=== PATIENT | male | born 1955 | race Hispanic/Latino ===

== ENCOUNTER 2017-11-14 10:00 | Inpatient (IN) | payer OTHER ==
[~2017-11-14] VITALS: Ht 165.1 cm; Wt 85.2 kg
[2017-11-14 14:28] LABS: BASOPHILS % (AUTO) 0.9 % (0.0-5.0); EOSINOPHILS % (AUTO) 1.9 % (0.0-8.0); HEMATOCRIT 44.7 % (42-54); LYMPHOCYTES % (AUTO) 24.7 % (21.0-51.0); MEAN CORPUSCULAR HEMOGLOBIN 28.9 pg (27.0-33.0); MEAN CORPUSCULAR HGB CONC 34.5 g/dL (32.0-36.0); MEAN CORPUSCULAR VOLUME 83.9 fL (79-99); MONOCYTES % (AUTO) 11.8 % (3.0-13.0); NEUTROPHILS % (AUTO) 60.7 % (40.0-77.0); PLATELET COUNT (AUTO) 221 K/uL (130-400); RED BLOOD CELL COUNT(AUTO) 5.33 MIL/uL (4.50-6.20); RED CELL DISTRIBUTION WIDTH 14.1 % (11.0-15.5); WHITE BLOOD COUNT (AUTO) 7.6 K/uL (4.8-10.8)
[2017-11-14 14:29] VITALS: BP 132/63
[2017-11-14 14:40] LABS: PARTIAL THROMBOPLASTIN TIME 27.1 SEC (26.3-35.5); PROTHROMBIN TIME 10.5 SEC (9.6-11.6)
[2017-11-14 14:44] LABS: ALBUMIN 4.3 g/dL (3.5-5.0); BILIRUBIN,TOTAL 0.6 mg/dL (0.2-1.0); HEMOGLOBIN A1C 5.8 % (4.0-6.0); POTASSIUM 3.9 mmol/L (3.5-5.1); TOTAL PROTEIN, SERUM 7.5 g/dL (6.0-8.3)
[2017-11-14] MEDS ORDERED: CLON0.1T PO (15:00)
[2017-11-14] MEDS ORDERED: HYDR-4153 PO (15:00)
[2017-11-14] MEDS ORDERED: AMLO5TAB2 PO (15:00)
[2017-11-15] VITALS (22 sets, daily range): BP systolic 86–168; BP diastolic 34–73
[2017-11-15] MEDS: CEFUROXIME SODIUM 1.5 GM VIAL IVP SCH ×2 (06:00→08:30)
[2017-11-15] MEDS ORDERED: SODIUM CHLORIDE 0.9% 1000ML 1,000 ML IV ONE (06:19)
[2017-11-15] MEDS ORDERED: NITROGLYCERIN 50 MG/D5% WATER 1 BOT ONE (06:29)
[2017-11-15] MEDS ORDERED: BACITRACIN 50,000 UNIT VIAL ONE ×2 (07:03→15:23)
[2017-11-15] MEDS ORDERED: AMIODARONE HCL 50 MG/ML 3 ML VIAL ONE (07:13)
[2017-11-15] MEDS ORDERED: FENTANYL CITRATE PF 50 MCG/1 ML 5ML AMP IV ONE ×2 (07:22→07:23)
[2017-11-15] MEDS ORDERED: ROCURONIUM BROMIDE 10MG/1ML 5ML VL ONE ×2 (07:24→07:35)
[2017-11-15] MEDS ORDERED: GLYCOPYRROLATE 0.2 MG/ML 5 ML VIAL ONE (07:24)
[2017-11-15] MEDS ORDERED: PROTAMINE SULFATE 10 MG/ML 25ML VIAL IV ONE (07:24)
[2017-11-15] MEDS ORDERED: AMINOCAPROIC ACID 250 MG/ML 20 ML VIAL IV ONE (07:24)
[2017-11-15] MEDS ORDERED: PROPOFOL 10 MG/ML 20ML VIAL IV ONE (07:24)
[2017-11-15] MEDS ORDERED: NOREPINEPHRINE BITARTRATE 1 MG/1 ML ML IV ONE ×3 (07:24→14:59)
[2017-11-15] MEDS ORDERED: EPINEPHRINE 1 MG/ML AMPULE ONE (07:24)
[2017-11-15] MEDS ORDERED: ESMOLOL HCL 10 MG/ML 10 ML VIAL ONE (07:24)
[2017-11-15] MEDS ORDERED: MILRINONE-D5W 20 MG/100 ML 100 ML IV ONE (07:24)
[2017-11-15] MEDS ORDERED: LIDOCAINE PF 2% 5ML ABBOJECT ONE (07:24)
[2017-11-15] MEDS ORDERED: HEPARIN SODIUM 1000UNIT/ML 10ML VIAL ONE (07:24)
[2017-11-15] MEDS ORDERED: NEOSTIGMINE 5MG/5ML SYR IV ONE (07:24)
[2017-11-15] MEDS ORDERED: MIDAZOLAM HCL 1 MG/ML 5ML VIAL ONE (07:25)
[2017-11-15] MEDS ORDERED: DELNIDO FORMULA 1 BAG IV ONE (08:09)
[2017-11-15] MEDS ORDERED: THROMBIN-JMI 5000 UNIT/VIAL TP ONE (08:09)
[2017-11-15] MEDS ORDERED: METHYLPREDNISOLONE SOD SUCC 1,000 MG/8 ML ML IV ONE (08:11)
[2017-11-15 09:13] LABS: ABG HCO3 25.4 mmol/L (21.0-28.0); ABG OXYGEN SATURATION 98.8 % (95.0-99.0); ABG PCO2 44 mmHg (35-48)
[2017-11-15] MEDS ORDERED: ROPIVACAINE 0.2% 2MG/ML 100ML VIAL IJ ONE (10:00)
[2017-11-15 10:28] LABS: ABG BASE EXCESS -0.3 mmol/L (-2.0-3.0); ABG HCO3 24.5 mmol/L (21.0-28.0); ABG OXYGEN SATURATION 98.6 % (95.0-99.0); ABG PCO2 41 mmHg (35-48)
[2017-11-15] MEDS ORDERED: SODIUM CHLORIDE 0.9% 500ML 500 ML IV SCH (11:05)
[2017-11-15] MEDS ORDERED: ONDANSETRON HCL 4 MG/2 ML VIAL IV PRN (11:15)
[2017-11-15] MEDS ORDERED: DEXTROSE 50%-WATER 50 ML DISP.SYRIN IV PRN (11:15)
[2017-11-15] MEDS ORDERED: NITROGLYCERIN 50 MG/D5% WATER 250 BOT IV SCH (11:15)
[2017-11-15] MEDS ORDERED: AMINOCAPROIC ACID 15,000 MG in SODIUM CHLORIDE 0.9% 250 ML IV SCH (11:15)
[2017-11-15] MEDS ORDERED: CALCIUM GLUCONATE 1 GM in SODIUM CHLORIDE 0.9% 50 ML IV PRN (11:15)
[2017-11-15] MEDS ORDERED: ALBUMIN (HUMAN) 5% 250 ML IV PRN (11:15)
[2017-11-15] MEDS ORDERED: MORPHINE SULFATE 2 MG/ML 1ML SYG IV PRN (11:15)
[2017-11-15] MEDS ORDERED: SODIUM CHLORIDE 0.9% 250 ML IV PRN (11:15)
[2017-11-15] MEDS ORDERED: SODIUM CHLORIDE 0.9% 10 ML VIAL IVP PRN (11:15)
[2017-11-15] MEDS ORDERED: EPINEPHRINE 2 MG in SODIUM CHLORIDE 0.9% 250 ML IV PRN (11:15)
[2017-11-15] MEDS ORDERED: POTASSIUM PHOS 15 mMOL+NS250ML 250 ML IV PRN (11:15)
[2017-11-15] MEDS ORDERED: ACETAMINOPHEN 650 MG SUPPOSITORY RC PRN (11:15)
[2017-11-15] MEDS ORDERED: MORPHINE SULFATE 4 MG/1ML SYG IV PRN (11:15)
[2017-11-15] MEDS ORDERED: SODIUM BICARB 8.4% 50ML SYRINGE IV PRN (11:15)
[2017-11-15] MEDS ORDERED: SODIUM CHLORIDE 0.9% 1000ML 1,000 ML IV SCH (11:15)
[2017-11-15] MEDS ORDERED: ACETAMINOPHEN 325 MG TAB PO PRN (11:15)
[2017-11-15] MEDS ORDERED: NOREPINEPHRINE 4MG/NS 250ML 250 ML IV PRN (11:15)
[2017-11-15] MEDS ORDERED: MAGNESIUM 2GM PREMIX 50ML 50 ML IV PRN (11:15)
[2017-11-15] MEDS ORDERED: GLUCAGON 1MG KIT 1 MG ML IM PRN (11:15)
[2017-11-15] MEDS ORDERED: PROPOFOL 1000 MG/100 ML 100 ML IV PRN (11:15)
[2017-11-15] MEDS ORDERED: NICARDIPINE HCL 100 MG in SODIUM CHLORIDE 0.9% 100 ML IV PRN (11:15)
[2017-11-15 11:17] LABS: ABG BASE EXCESS -6.9 mmol/L (-2.0-3.0); ABG HCO3 18.9 mmol/L (21.0-28.0); ABG OXYGEN SATURATION 98.4 % (95.0-99.0); ABG PCO2 39 mmHg (35-48)
[2017-11-15] MEDS ORDERED: ONDANSETRON HCL MDV 20ML 2 MG/ML VIAL IVP PRN (11:30)
[2017-11-15] MEDS ORDERED: ALBUMIN (HUMAN) 25% 50 ML IV ONE (12:00)
[2017-11-15] MEDS ORDERED: AMINOPHYLLINE 500 MG/20 ML VIAL IV ONE (12:00)
[2017-11-15] MEDS ORDERED: MAGNESIUM SULFATE 1 GM/2 ML VIAL IM ONE (12:00)
[2017-11-15] MEDS ORDERED: HEPARIN SODIUM 1000UNIT/ML 10ML VIAL IV ONE (12:00)
[2017-11-15] MEDS ORDERED: MANNITOL 25% 50ML VIAL IV ONE (12:00)
[2017-11-15] MEDS ORDERED: SODIUM BICARB 8.4% 50ML SYRINGE IVP ONE (12:00)
[2017-11-15] MEDS ORDERED: CALCIUM CHLORIDE 100 MG/ML 10 ML SYG IVP ONE (12:00)
[2017-11-15 12:03] LABS: ABG HCO3 16.7 mmol/L (21.0-28.0); ABG OXYGEN SATURATION 98.7 % (95.0-99.0); ABG PCO2 36 mmHg (35-48)
[2017-11-15] MEDS ORDERED: SODIUM BICARB 50MEQ 50ML VIAL ONE ×8 (12:07→21:07)
[2017-11-15] MEDS: POTASSIUM CHLORIDE 20MEQ/100ML 100 ML IV PRN ×6 (12:43→22:25)
[2017-11-15] MEDS: AMBU PUMP 1 EACH EACH MISC SCH (12:50)
[2017-11-15 13:07] LABS: ABG BASE EXCESS -6.1 mmol/L (-2.0-3.0); ABG HCO3 20.7 mmol/L (21.0-28.0); ABG OXYGEN SATURATION 91.2 % (95.0-99.0); ABG PCO2 45 mmHg (35-48)
[2017-11-15] MEDS ORDERED: PROTAMINE SULFATE 10 MG/ML 5 ML VIAL ONE (13:22)
[2017-11-15 13:23] LABS: MEAN CORPUSCULAR HGB CONC 33.7 g/dL (32.0-36.0); MEAN CORPUSCULAR VOLUME 86.1 fL (79-99); PLATELET COUNT (AUTO) 182 K/uL (130-400); RED BLOOD CELL COUNT(AUTO) 4.99 MIL/uL (4.50-6.20); RED CELL DISTRIBUTION WIDTH 14.2 % (11.0-15.5)
[2017-11-15 13:28] LABS: CREATININE 1.4 mg/dL (0.5-1.5); MAGNESIUM 2.7 mg/dL (1.80-2.40); PHOSPHORUS 4.4 mg/dL (2.5-4.9); POTASSIUM 3.3 mmol/L (3.5-5.1)
[2017-11-15] MEDS ORDERED: DESMOPRESSIN ACETATE IJ SCH (13:30)
[2017-11-15] MEDS ORDERED: PROTAMINE SULFATE 10 MG/ML 5 ML VIAL IVP SCH (13:30)
[2017-11-15] MEDS ORDERED: SODIUM CHLORIDE 0.9% IJ SCH (13:30)
[2017-11-15 13:33] LABS: INR 1.14 (0.85-1.15); PARTIAL THROMBOPLASTIN TIME 24.3 SEC (26.3-35.5); PROTHROMBIN TIME 11.9 SEC (9.6-11.6)
[2017-11-15 13:39] LABS: ABG BASE EXCESS -6.1 mmol/L (-2.0-3.0); ABG HCO3 20.4 mmol/L (21.0-28.0); ABG OXYGEN SATURATION 92.8 % (95.0-99.0); ABG PCO2 44 mmHg (35-48)
[2017-11-15 14:11] LABS: ABG BASE EXCESS -3.8 mmol/L (-2.0-3.0); ABG HCO3 21.2 mmol/L (21.0-28.0); ABG OXYGEN SATURATION 95.6 % (95.0-99.0); ABG PCO2 38 mmHg (35-48)
[2017-11-15] MEDS ORDERED: MIDAZOLAM HCL 1 MG/ML 2ML VIAL ONE (14:32)
[2017-11-15] MEDS ORDERED: MIDAZOLAM HCL 1 MG/ML 2ML VIAL IVP SCH (14:45)
[2017-11-15 14:53] LABS: ABG BASE EXCESS -7.3 mmol/L (-2.0-3.0); ABG PCO2 50 mmHg (35-48)
[2017-11-15] MEDS ORDERED: CEFUROXIME SODIUM 1.5 GM VIAL ONE (14:55)
[2017-11-15 15:04] LABS: HEMATOCRIT 23.5 % (42-54); MEAN CORPUSCULAR HEMOGLOBIN 29.7 pg (27.0-33.0); MEAN CORPUSCULAR HGB CONC 34.4 g/dL (32.0-36.0); MEAN CORPUSCULAR VOLUME 86.3 fL (79-99); PLATELET COUNT (AUTO) 179 K/uL (130-400); RED BLOOD CELL COUNT(AUTO) 2.72 MIL/uL (4.50-6.20); RED CELL DISTRIBUTION WIDTH 14.3 % (11.0-15.5); WHITE BLOOD COUNT (AUTO) 15.2 K/uL (4.8-10.8)
[2017-11-15] MEDS ORDERED: POTASSIUM CHLORIDE 20MEQ/100ML 100 ML IV ONE (15:04)
[2017-11-15] MEDS ORDERED: THROMBIN-JMI 20000 UNIT KIT TP ONE ×2 (15:10→15:29)
[2017-11-15 15:15] LABS: INR 1.18 (0.85-1.15); PARTIAL THROMBOPLASTIN TIME 25.2 SEC (26.3-35.5); PROTHROMBIN TIME 12.4 SEC (9.6-11.6)
[2017-11-15 15:36] LABS: ABG BASE EXCESS -2.6 mmol/L (-2.0-3.0); ABG HCO3 24.2 mmol/L (21.0-28.0); ABG OXYGEN SATURATION 95.5 % (95.0-99.0); ABG PCO2 51 mmHg (35-48)
[2017-11-15] MEDS ORDERED: EPHEDRINE SULFATE 50 MG/ML AMPULE ONE (15:38)
[2017-11-15] MEDS ORDERED: OCTYL 2-CYANOACRYLATE 1 EACH TP ONE (15:47)
[2017-11-15 16:50] LABS: HEMATOCRIT 31.7 % (42-54); MEAN CORPUSCULAR HEMOGLOBIN 29.4 pg (27.0-33.0); MEAN CORPUSCULAR HGB CONC 34.2 g/dL (32.0-36.0); MEAN CORPUSCULAR VOLUME 85.9 fL (79-99); PLATELET COUNT (AUTO) 204 K/uL (130-400); RED BLOOD CELL COUNT(AUTO) 3.69 MIL/uL (4.50-6.20); RED CELL DISTRIBUTION WIDTH 14.6 % (11.0-15.5); WHITE BLOOD COUNT (AUTO) 21.2 K/uL (4.8-10.8)
[2017-11-15 16:56] LABS: CREATININE 1.6 mg/dL (0.5-1.5)
[2017-11-15 17:05] LABS: ABG BASE EXCESS -4.3 mmol/L (-2.0-3.0); ABG HCO3 19.9 mmol/L (21.0-28.0); ABG OXYGEN SATURATION 97.4 % (95.0-99.0); ABG PCO2 33 mmHg (35-48)
[2017-11-15] MEDS ORDERED: SODIUM CHLORIDE 0.9% 100 ML IV ONE ×3 (17:08→21:09)
[2017-11-15 17:17] LABS: POTASSIUM 2.8 mmol/L (3.5-5.1)
[2017-11-15] MEDS ORDERED: SODIUM BICARB 50MEQ 50ML VIAL IV ONE (17:30)
[2017-11-15] MEDS ORDERED: EPINEPHRINE 8 MG in SODIUM CHLORIDE 0.9% 250 ML IV PRN (17:45)
[2017-11-15] MEDS ORDERED: COAGULATION FACTOR VIIA RECOMB 1 MG VIAL IV SCH (17:45)
[2017-11-15] MEDS ORDERED: PHARMACY COMMUNICATION MISC SCH (18:00)
[2017-11-15] MEDS ORDERED: NOREPINEPHRINE BITARTRATE 8 MG in SODIUM CHLORIDE 0.9% 250 ML IV SCH (18:15)
[2017-11-15 18:32] LABS: ABG BASE EXCESS -1.1 mmol/L (-2.0-3.0); ABG HCO3 22.5 mmol/L (21.0-28.0); ABG OXYGEN SATURATION 99.2 % (95.0-99.0); ABG PCO2 35 mmHg (35-48)
[2017-11-15] MEDS: INSULIN REGULAR, HUMAN 3ML 100 UNIT in SODIUM CHLORIDE 0.9% 99 ML IV SCH ×2 (18:39)
[2017-11-15] MEDS ORDERED: CEFUROXIME 1.5GM+NS 100ML 100 ML IV SCH (19:15)
[2017-11-15 20:05] LABS: ABG BASE EXCESS -5.9 mmol/L (-2.0-3.0); ABG HCO3 18.5 mmol/L (21.0-28.0); ABG OXYGEN SATURATION 97.4 % (95.0-99.0); ABG PCO2 33 mmHg (35-48)
[2017-11-15] MEDS ORDERED: CALCIUM GLUCONATE 1 GM/10 ML VIAL IV ONE ×2 (20:08→21:08)
[2017-11-15 21:04] LABS: ABG BASE EXCESS -2.3 mmol/L (-2.0-3.0); ABG HCO3 21.1 mmol/L (21.0-28.0); ABG OXYGEN SATURATION 97.6 % (95.0-99.0); ABG PCO2 32 mmHg (35-48)
[2017-11-15 22:06] LABS: ABG BASE EXCESS 2.2 mmol/L (-2.0-3.0); ABG HCO3 25.1 mmol/L (21.0-28.0); ABG OXYGEN SATURATION 97.5 % (95.0-99.0); ABG PCO2 33 mmHg (35-48)
[2017-11-16] VITALS (26 sets, daily range): BP systolic 99–153; BP diastolic 49–83
[2017-11-16 00:11] LABS: ABG BASE EXCESS 2.4 mmol/L (-2.0-3.0); ABG HCO3 25.3 mmol/L (21.0-28.0); ABG OXYGEN SATURATION 95.3 % (95.0-99.0); ABG PCO2 33 mmHg (35-48)
[2017-11-16] MEDS ORDERED: CALCIUM GLUCONATE 1 GM/10 ML VIAL IV ONE ×3 (00:13→06:58)
[2017-11-16] MEDS ORDERED: SODIUM CHLORIDE 0.9% 100 ML IV ONE ×2 (00:14→06:59)
[2017-11-16] MEDS: POTASSIUM CHLORIDE 20MEQ/100ML 100 ML IV PRN (00:20)
[2017-11-16 02:13] LABS: ABG BASE EXCESS 5.2 mmol/L (-2.0-3.0); ABG HCO3 27.9 mmol/L (21.0-28.0); ABG OXYGEN SATURATION 94.9 % (95.0-99.0); ABG PCO2 34 mmHg (35-48)
[2017-11-16] MEDS: CEFUROXIME SODIUM 1.5 GM VIAL IVP SCH ×2 (02:23→13:19)
[2017-11-16 03:14] LABS: ABG HCO3 28.9 mmol/L (21.0-28.0); ABG OXYGEN SATURATION 95.5 % (95.0-99.0); ABG PCO2 35 mmHg (35-48)
[2017-11-16 03:52] LABS: MEAN CORPUSCULAR HEMOGLOBIN 29.3 pg (27.0-33.0); MEAN CORPUSCULAR VOLUME 83.6 fL (79-99); PLATELET COUNT (AUTO) 146 K/uL (130-400); RED BLOOD CELL COUNT(AUTO) 3.12 MIL/uL (4.50-6.20); RED CELL DISTRIBUTION WIDTH 14.5 % (11.0-15.5); WHITE BLOOD COUNT (AUTO) 9.4 K/uL (4.8-10.8)
[2017-11-16 04:10] LABS: CREATININE 1.4 mg/dL (0.5-1.5); MAGNESIUM 1.8 mg/dL (1.80-2.40); POTASSIUM 4.9 mmol/L (3.5-5.1)
[2017-11-16 05:05] LABS: ABG BASE EXCESS 8.9 mmol/L (-2.0-3.0); ABG HCO3 31.8 mmol/L (21.0-28.0); ABG OXYGEN SATURATION 94.3 % (95.0-99.0); ABG PCO2 37 mmHg (35-48)
[2017-11-16 06:37] LABS: ABG BASE EXCESS 6.9 mmol/L (-2.0-3.0); ABG HCO3 30.3 mmol/L (21.0-28.0); ABG OXYGEN SATURATION 93.8 % (95.0-99.0); ABG PCO2 38 mmHg (35-48)
[2017-11-16 08:11] LABS: ABG BASE EXCESS 7.2 mmol/L (-2.0-3.0); ABG HCO3 31.2 mmol/L (21.0-28.0); ABG OXYGEN SATURATION 92.5 % (95.0-99.0); ABG PCO2 42 mmHg (35-48)
[2017-11-16] MEDS: AMBU PUMP 1 EACH EACH MISC SCH (08:15)
[2017-11-16] MEDS: PANTOPRAZOLE 40 MG/VIAL IV SCH (08:42)
[2017-11-16] MEDS: INSULIN REGULAR, HUMAN 3ML 100 UNIT in SODIUM CHLORIDE 0.9% 99 ML IV SCH ×2 (08:45)
[2017-11-16] MEDS: HYDROCODONE/ACETAMINOPHEN 5/325 MG TAB PO PRN ×2 (09:16→20:15)
[2017-11-16] MEDS: TRAMADOL HCL 50 MG TABLET PO PRN ×2 (13:20→17:06)
[2017-11-16] MEDS ORDERED: MORPHINE SULFATE 4 MG/1ML SYG IV PRN (18:18)
[2017-11-16] MEDS: ATORVASTATIN CALCIUM 20 MG TABLET PO SCH (20:08)
[2017-11-17] VITALS (22 sets, daily range): BP systolic 88–142; BP diastolic 57–88
[2017-11-17] MEDS: TRAMADOL HCL 50 MG TABLET PO PRN (00:06)
[2017-11-17] MEDS: CEFUROXIME SODIUM 1.5 GM VIAL IVP SCH (01:51)
[2017-11-17 04:13] LABS: HEMATOCRIT 24.4 % (42-54); MEAN CORPUSCULAR HEMOGLOBIN 30.6 pg (27.0-33.0); MEAN CORPUSCULAR HGB CONC 35.3 g/dL (32.0-36.0); MEAN CORPUSCULAR VOLUME 86.6 fL (79-99); PLATELET COUNT (AUTO) 137 K/uL (130-400); RED BLOOD CELL COUNT(AUTO) 2.82 MIL/uL (4.50-6.20); RED CELL DISTRIBUTION WIDTH 15.4 % (11.0-15.5); WHITE BLOOD COUNT (AUTO) 21.8 K/uL (4.8-10.8)
[2017-11-17 04:35] LABS: CREATININE 1.7 mg/dL (0.5-1.5); MAGNESIUM 2.4 mg/dL (1.80-2.40); PHOSPHORUS 6.7 mg/dL (2.5-4.9); POTASSIUM 5.2 mmol/L (3.5-5.1)
[2017-11-17] MEDS: HYDROCODONE/ACETAMINOPHEN 5/325 MG TAB PO PRN ×2 (05:45→17:36)
[2017-11-17] MEDS: ASPIRIN 81 MG EC TAB PO SCH (08:24)
[2017-11-17] MEDS: FUROSEMIDE 20 MG TABLET PO SCH ×3 (08:25→20:37)
[2017-11-17] MEDS: METOPROLOL TARTRATE 25 MG TAB PO SCH ×2 (08:25→20:38)
[2017-11-17] MEDS: AMBU PUMP 1 EACH EACH MISC SCH (08:45)
[2017-11-17] MEDS: PANTOPRAZOLE 40 MG/VIAL IV SCH (09:00)
[2017-11-17] MEDS: ATORVASTATIN CALCIUM 20 MG TABLET PO SCH (20:37)
[2017-11-18] VITALS (16 sets, daily range): BP systolic 103–149; BP diastolic 68–94
[2017-11-18] MEDS: HYDROCODONE/ACETAMINOPHEN 5/325 MG TAB PO PRN ×2 (00:34→09:12)
[2017-11-18 05:59] LABS: HEMATOCRIT 28.5 % (42-54); MEAN CORPUSCULAR HEMOGLOBIN 29.4 pg (27.0-33.0); MEAN CORPUSCULAR HGB CONC 33.6 g/dL (32.0-36.0); MEAN CORPUSCULAR VOLUME 87.5 fL (79-99); NUCLEATED RED BLOOD CELLS 0.2 % (0.0-0.19); PLATELET COUNT (AUTO) 128 K/uL (130-400); RED BLOOD CELL COUNT(AUTO) 3.26 MIL/uL (4.50-6.20); RED CELL DISTRIBUTION WIDTH 14.9 % (11.0-15.5); WHITE BLOOD COUNT (AUTO) 22.7 K/uL (4.8-10.8)
[2017-11-18 06:25] LABS: CREATININE 2.9 mg/dL (0.5-1.5); POTASSIUM 5.1 mmol/L (3.5-5.1)
[2017-11-18] MEDS ORDERED: SODIUM CHLORIDE 0.9% 1000ML 1,000 ML IV ONE (08:09)
[2017-11-18] MEDS: AMBU PUMP 1 EACH EACH MISC SCH (08:45)
[2017-11-18] MEDS: FUROSEMIDE 20 MG TABLET PO SCH ×5 (09:00→20:29)
[2017-11-18] MEDS: ASPIRIN 81 MG EC TAB PO SCH (09:12)
[2017-11-18] MEDS: METOPROLOL TARTRATE 25 MG TAB PO SCH ×2 (09:13→20:30)
[2017-11-18] MEDS: PANTOPRAZOLE SODIUM 40 MG TABLET.DR PO SCH (09:13)
[2017-11-18] MEDS ORDERED: FUROSEMIDE 100 MG in SODIUM CHLORIDE 0.9% 90 ML IV SCH (11:15)
[2017-11-18] MEDS: ATORVASTATIN CALCIUM 20 MG TABLET PO SCH (20:30)
[2017-11-19] MEDS ORDERED: SODIUM CHLORIDE 0.9% 100 ML IV ONE (02:45)
[2017-11-19] MEDS ORDERED: AMIODARONE HCL 900 MG in DEXTROSE 5%-WATER 500 ML IV SCH (02:45)
[2017-11-19] MEDS ORDERED: AMIODARONE HCL 150 MG in DEXTROSE 5%-WATER 100 ML IV SCH (02:45)
[2017-11-19] MEDS ORDERED: AMIODARONE HCL 50 MG/ML 3 ML VIAL ONE ×2 (02:49→02:52)
[2017-11-19] MEDS ORDERED: DEXTROSE 5%-WATER 500 ML IV ONE (02:58)
[2017-11-19] MEDS: TRAMADOL HCL 50 MG TABLET PO PRN (03:26)
[2017-11-19 03:46] VITALS: BP 131/91
[2017-11-19 05:02] LABS: HEMATOCRIT 27.8 % (42-54); MEAN CORPUSCULAR HEMOGLOBIN 30.2 pg (27.0-33.0); MEAN CORPUSCULAR HGB CONC 34.5 g/dL (32.0-36.0); MEAN CORPUSCULAR VOLUME 87.4 fL (79-99); NUCLEATED RED BLOOD CELLS 1.5 % (0.0-0.19); PLATELET COUNT (AUTO) 141 K/uL (130-400); RED BLOOD CELL COUNT(AUTO) 3.18 MIL/uL (4.50-6.20); RED CELL DISTRIBUTION WIDTH 14.5 % (11.0-15.5); WHITE BLOOD COUNT (AUTO) 19.2 K/uL (4.8-10.8)
[2017-11-19 05:13] LABS: CREATININE 1.4 mg/dL (0.5-1.5); POTASSIUM 3.4 mmol/L (3.5-5.1)
[2017-11-19 07:00] VITALS: BP 132/94
[2017-11-19] MEDS: AMBU PUMP 1 EACH EACH MISC SCH (08:45)
[2017-11-19] MEDS: ASPIRIN 81 MG EC TAB PO SCH (09:19)
[2017-11-19] MEDS: PANTOPRAZOLE SODIUM 40 MG TABLET.DR PO SCH (09:19)
[2017-11-19] MEDS: METOPROLOL TARTRATE 25 MG TAB PO SCH ×2 (09:20→21:44)
[2017-11-19 11:00] VITALS: BP 136/76
[2017-11-19] MEDS: HYDROCODONE/ACETAMINOPHEN 5/325 MG TAB PO PRN (14:58)
[2017-11-19 16:00] VITALS: BP 121/63
[2017-11-19] MEDS: FUROSEMIDE 20 MG TABLET PO SCH (16:08)
[2017-11-19] MEDS ORDERED: POTASSIUM CHLORIDE 20 MEQ ERTAB PO PRN (16:15)
[2017-11-19 19:45] VITALS: BP 120/59
[2017-11-19] MEDS: AMIODARONE HCL 200 MG TABLET PO SCH (21:44)
[2017-11-19] MEDS: ATORVASTATIN CALCIUM 20 MG TABLET PO SCH (21:44)
[2017-11-19] MEDS: HYDRALAZINE HCL 25 MG TABLET PO SCH (21:45)
[2017-11-19 23:28] VITALS: BP 91/60
[2017-11-20] MEDS: HYDROCODONE/ACETAMINOPHEN 5/325 MG TAB PO PRN ×2 (00:49→18:50)
[2017-11-20 03:50] VITALS: BP 107/62
[2017-11-20 04:43] LABS: POTASSIUM 3.5 mmol/L (3.5-5.1)
[2017-11-20] MEDS: POTASSIUM CHLORIDE 10% ELIXIR 20 MEQ/15 ML UDCUP PO PRN ×2 (06:47→08:31)
[2017-11-20 07:00] VITALS: BP 120/70
[2017-11-20] MEDS: AMIODARONE HCL 200 MG TABLET PO SCH ×2 (08:30→21:32)
[2017-11-20] MEDS: FUROSEMIDE 20 MG TABLET PO SCH ×2 (08:30→16:14)
[2017-11-20] MEDS: AMLODIPINE BESYLATE 5 MG TAB PO SCH (08:30)
[2017-11-20] MEDS: PANTOPRAZOLE SODIUM 40 MG TABLET.DR PO SCH (08:30)
[2017-11-20] MEDS: METOPROLOL TARTRATE 25 MG TAB PO SCH ×2 (08:30→21:31)
[2017-11-20] MEDS: ASPIRIN 81 MG EC TAB PO SCH (08:30)
[2017-11-20] MEDS: HYDRALAZINE HCL 25 MG TABLET PO SCH ×2 (08:31→21:32)
[2017-11-20 10:03] LABS: HEMATOCRIT 27.3 % (42-54); MEAN CORPUSCULAR HEMOGLOBIN 29.4 pg (27.0-33.0); MEAN CORPUSCULAR HGB CONC 33.8 g/dL (32.0-36.0); NUCLEATED RED BLOOD CELLS 0.7 % (0.0-0.19); PLATELET COUNT (AUTO) 146 K/uL (130-400); RED BLOOD CELL COUNT(AUTO) 3.14 MIL/uL (4.50-6.20); RED CELL DISTRIBUTION WIDTH 14.2 % (11.0-15.5); WHITE BLOOD COUNT (AUTO) 16.2 K/uL (4.8-10.8)
[2017-11-20 11:00] VITALS: BP 108/55
[2017-11-20 16:00] VITALS: BP 122/67
[2017-11-20 19:50] VITALS: BP 122/87
[2017-11-20] MEDS: ATORVASTATIN CALCIUM 20 MG TABLET PO SCH (21:32)
[2017-11-20 23:22] VITALS: BP 103/58
[2017-11-21] MEDS: HYDROCODONE/ACETAMINOPHEN 5/325 MG TAB PO PRN (00:20)
[2017-11-21 03:28] VITALS: BP 113/64
[2017-11-21 07:36] VITALS: BP 129/72
[2017-11-21] MEDS: FUROSEMIDE 20 MG TABLET PO SCH ×2 (08:04→15:54)
[2017-11-21] MEDS: PANTOPRAZOLE SODIUM 40 MG TABLET.DR PO SCH (08:04)
[2017-11-21] MEDS: ASPIRIN 81 MG EC TAB PO SCH (08:04)
[2017-11-21] MEDS: METOPROLOL TARTRATE 25 MG TAB PO SCH (08:05)
[2017-11-21] MEDS: AMLODIPINE BESYLATE 5 MG TAB PO SCH (08:06)
[2017-11-21] MEDS ORDERED: AMIODARONE HCL 200 MG TABLET PO SCH (09:00)
[2017-11-21] MEDS ORDERED: ATOR20TA65 PO (10:26)
[2017-11-21] MEDS ORDERED: AEC81 PO (10:26)
[2017-11-21] MEDS ORDERED: FURO20TA6 PO (10:26)
[2017-11-21] MEDS ORDERED: METO25 PO (10:26)
[2017-11-21] MEDS: HYDRALAZINE HCL 25 MG TABLET PO SCH (11:16)
[2017-11-21 11:22] VITALS: BP 124/58
[2017-11-21] MEDS ORDERED: AMIO200T44 PO (14:05)
== END 2017-11-21 16:12 | disposition home or self-care (01) | DRG 163 ==
LOC: EDSTATUS 10:00 → DAHIP 11-15 05:43 → 2CV 11-15 09:50 → 2CH 11-16 12:41 → 2DH 11-18 17:34
PROVIDERS: ADMIT Thoracic Surgery (Cardiothoracic Vascular Surgery); ATTEND Thoracic Surgery (Cardiothoracic Vascular Surgery)
PROC: 02L70ZK Occlusion of Left Atrial Appendage, Open Approach (ICD-10-PCS; 2017-11-15)
PROC: 02BG0ZZ Excision of Mitral Valve, Open Approach (ICD-10-PCS; 2017-11-15)
PROC: 30233L1 Transfusion of Nonautologous Fresh Plasma into Peripheral Vein, Percutaneous Approach (ICD-10-PCS; 2017-11-15)
PROC: 30233N1 Transfusion of Nonautologous Red Blood Cells into Peripheral Vein, Percutaneous Approach (ICD-10-PCS; 2017-11-15)
PROC: 30233R1 Transfusion of Nonautologous Platelets into Peripheral Vein, Percutaneous Approach (ICD-10-PCS; 2017-11-15)
PROC: 30233K1 Transfusion of Nonautologous Frozen Plasma into Peripheral Vein, Percutaneous Approach (ICD-10-PCS; 2017-11-15)
PROC: 02QG0ZZ Repair Mitral Valve, Open Approach (ICD-10-PCS; principal; 2017-11-15 07:30)
PROC: 5A1221Z Performance of Cardiac Output, Continuous (ICD-10-PCS; 2017-11-15 07:30)
DX: I34.0 Nonrheumatic mitral (valve) insufficiency (principal); N17.0 Acute kidney failure with tubular necrosis; D68.9 Coagulation defect, unspecified; E87.2 Acidosis; J94.2 Hemothorax; I95.9 Hypotension, unspecified; I48.0 Paroxysmal atrial fibrillation; D64.9 Anemia, unspecified; I10 Essential (primary) hypertension; I34.1 Nonrheumatic mitral (valve) prolapse; N28.9 Disorder of kidney and ureter, unspecified; E78.5 Hyperlipidemia, unspecified; Z87.891 Personal history of nicotine dependence
CPT/HCPCS: 36415; 36430; 71045; 71046; 76770; 76998; 80048; 80053; 80061; 82330; 82435; 82803; 82947; 82948; 83036; 83605; 83735; 83880; 84100; 84132; 84295; 85018; 85025; 85027; 85347; 85384; 85610; 85730; 86850; 86900; 86901; 86922; 86927; 88305; 88311; 93005; 93318; 93880; 94002; 94010; 94150; 97039; A4218; A4351; A7048; C1757; C9113; J0171; J0280; J0282; J0610; J0697; J1644; J1815; J1940; J2001; J2150; J2250; J2260; J2270; J2597; J2704; J2710; J2720; J2795; J2930; J3010; J3475; J3480; J3490; J7030; J7040; J7060; J7189; P9012; P9016; P9017; P9034; P9045; P9047